=== PATIENT | male | born 1980 | race Caucasian/White ===

== ENCOUNTER 2017-11-26 07:04 | Emergency (ER) | payer SELFPAY ==
--- NOTE | 2017-11-26 07:13 | EDM.PDOC ---
ED HPI GENERAL MEDICAL PROBLEM - General Chief Complaint: General Stated Complaint: TOOTH MOUTH SWOLLEN [id number] Time Seen by Provider: 11/26/17 07:12 Source of Information: Reports: Patient, RN, RN Notes Reviewed History Limitations: Reports: No Limitations - History of Present Illness INITIAL COMMENTS - FREE TEXT/NARRATIVE: C/O dental pain and possible abscess at Rt upper incisor/pre-molar area. The tooth has "been bad" for about a month, but became painful several days ago. Today he woke with left facial swelling and pain. Denies fever or chills. Denies purulent drainage from the tooth. Duration: Constant, Resolved Prior to Arrival Location: Reports: Other (mouth/dental) Quality: Reports: Ache, Throbbing Severity: Severe Improves with: Reports: None Worsens with: Reports: Eating Associated Symptoms: Reports: No Other Symptoms Tooth/Teeth Pain Score (Numeric/FACES): 10 - Related Data Allergies Allergy/AdvReac Type Severity Reaction Status Date / Time No Known Allergies Allergy Verified 11/26/17 07:14 Home Meds: Home Meds Ibuprofen 600 mg PO ASDIRECTED PRN 11/26/17 [History] Past Medical History HEENT History: Reports: Other (See Below) (dental decay) Social & Family History - Family History Family Medical History: Noncontributory - Living Situation & Occupation Living situation: Reports: with Family ED ROS GENERAL - Review of Systems Review Of Systems: ROS reveals no pertinent complaints other than HPI. ED EXAM, GENERAL - Physical Exam Exam: See Below Exam Limited By: No Limitations General Appearance: Alert, WD/WN, No Apparent Distress Eye Exam: Bilateral Eye: Normal Inspection Nose: Normal Inspection, Normal Mucosa, No Blood Throat/Mouth: Normal Lips, Normal Oropharynx, Normal Voice, No Airway Compromise , Other (generalized dental decay, Rt maxillary gum swelling and tenderness without fluctuance at the left lateral incisor and premolar) Head: Facial Swelling (left face maxillary region from the upper lip to the infraorbital face, no periorbital involvement), Facial Tenderness Neck: Normal Inspection, Supple, Non-Tender, Full Range of Motion. No: Lymphadenopathy (L), Lymphadenopathy (R) Respiratory/Chest: No Respiratory Distress, Lungs Clear, Normal Breath Sounds, No Accessory Muscle Use, Chest Non-Tender Cardiovascular: Regular Rate, Rhythm Neurological: Alert, Oriented, CN II-XII Intact, Normal Cognition, Normal Gait, No Motor/Sensory Deficits Psychiatric: Normal Affect, Normal Mood Skin Exam: Dry, Intact, No Rash, Erythema (slight/faint erythema left face), Increased Warmth (left face) Course - Vital Signs Last Recorded V/S: Last Vital Signs Temp 37.2 C 11/26/17 07:10 Pulse 85 11/26/17 07:10 Resp 16 11/26/17 07:10 BP 157/70 H 11/26/17 07:10 Pulse Ox 100 11/26/17 07:10 - Orders/Labs/Meds Orders: Active Orders 24 hr Category Date Time Status Peripheral IV Care [RC] . DIRECTED Care 11/26/17 07:23 Active Sodium Chloride 0.9% [Saline Flush] Med 11/26/17 07:22 Active 10 ml FLUSH ASDIRECTED PRN Peripheral IV Insertion Adult [OM.PC] Stat Oth 11/26/17 07:22 Ordered Medication Orders Sodium Chloride (Saline Flush) 10 ml FLUSH ASDIRECTED PRN PRN Reason: Keep Vein Open Last Admin: 11/26/17 07:45 Dose: 10 ml Admin: 11/26/17 07:38 Dose: 10 ml Labs: Laboratory Tests 11/26/17 11/26/17 Range/Units 07:32 07:32 WBC 17.2 H (5.0-10.0) 10^3/uL RBC 4.75 (4.6-6.2) 10^6/uL Hgb 14.1 (14.0-18.0) g/dL Hct 41.9 (40.0-54.0) % MCV 88.2 (80-100) fL MCH 29.7 (27.0-34.0) pg MCHC 33.7 (33.0-35.0) g/dL Plt Count 245 (150-450) 10^3/uL Neut % (Auto) 80.4 H (42.2-75.2) % Lymph % (Auto) 6.7 L (20.5-50.1) % [place] % (Auto) 11.8 H (2-8) % Eos % (Auto) 1.0 (1.0-3.0) % Baso % (Auto) 0.1 (0.0-1.0) % C-Reactive Protein 4.3 H (0.0-1.3) mg/dL Meds: Medications Generic Name Dose Route Start Last Admin Trade Name Freq PRN Reason Stop Dose Admin Sodium Chloride 10 ml 11/26/17 07:22 11/26/17 07:45 Saline Flush FLUSH 10 ml ASDIRECTED PRN Administration Keep Vein Open Discontinued Medications Generic Name Dose Route Start Last Admin Trade Name Fanta PRN Reason Stop Dose Admin Dexamethasone 20 mg 11/26/17 07:23 11/26/17 07:38 Dexamethasone IVPUSH 11/26/17 07:24 20 mg ONETIME ONE Administration Piperacillin Sod/Tazobactam 50 mls @ 100 mls/hr 11/26/17 07:24 11/26/17 07:45 Sod 4.5 gm/ Sodium Chloride IV 11/26/17 07:53 100 mls/hr ONETIME ONE Administration Lidocaine HCl 15 ml 11/26/17 07:24 11/26/17 07:38 Xylocaine 2% Viscous PO 11/26/17 07:25 15 ml ONETIME ONE Administration Departure - Departure Time of Disposition: 08:23 Disposition: Home, Self-Care 01 Condition: Good Clinical Impression: Dental abscess, Cellulitis of face - Discharge Information Instructions: Dental Abscess, [id number], Cellulitis, Adult, [id number] Forms: ED Department Discharge Additional Instructions: Rx: Amoxicillin 500mg Rx: Flagyl 500mg Rx: Viscous Lidocaine 2% Follow up with dentist at the first available appointment. Return to ER if worse at any time. - My Orders Last 24 Hours: My Active Orders 11/26/17 07:22 Sodium Chloride 0.9% [Saline Flush] 10 ml FLUSH ASDIRECTED PRN Peripheral IV Insertion Adult [OM.PC] Stat 11/26/17 07:23 Peripheral IV Care [RC] . DIRECTED - Assessment/Plan Last 24 Hours: My Active Orders 11/26/17 07:22 Sodium Chloride 0.9% [Saline Flush] 10 ml FLUSH ASDIRECTED PRN Peripheral IV Insertion Adult [OM.PC] Stat 11/26/17 07:23 Peripheral IV Care [RC] . DIRECTED
[2017-11-26] MEDS ORDERED: Dexamethasone 4 MG/ML SDV IVPUSH ONE (07:23)
[2017-11-26] MEDS ORDERED: Piperacillin/Tazobactam 4.5 GM in Sodium Chloride 0.9% 50 ML IV ONE (07:24)
[2017-11-26] MEDS ORDERED: Lidocaine 2% Viscous Solution 15 ML Cup PO ONE (07:24)
[2017-11-26] MEDS: Sodium Chloride 0.9% 10 ML Syringe FLUSH PRN ×2 (07:38→07:45)
== END 2017-11-26 08:37 | disposition home or self-care (01) ==
LOC: DL.ED 07:04 → MERGE 07:04 → DL.ED 08:37
DX: K04.7 Periapical abscess without sinus (principal); L03.211 Cellulitis of face
CPT/HCPCS: 36415; 85025; 86140; 96365; 96375; 99283; A9270; J1100; J2543; J7050

== ENCOUNTER 2022-02-13 00:18 | Emergency (ER) | payer OTHER ==
[2022-02-13] MEDS ORDERED: Amoxicillin/Clavulanate K 875-125 MG Tab PO ONE (00:19)
[2022-02-13] MEDS ORDERED: Amoxicillin/Clavulanate K 875-125 MG Tab ONE (02:06)
== END 2022-02-13 02:14 | disposition left against medical advice (07) ==
LOC: DL.ED 00:18
DX: K04.7 Periapical abscess without sinus (principal); F17.210 Nicotine dependence, cigarettes, uncomplicated
CPT/HCPCS: 99282; A9270-GY